=== PATIENT | male | born 1985 | race Two or more races ===

== ENCOUNTER 2023-03-14 11:46 | Inpatient (IN) | payer MEDICARE, OTHER ==
[~2023-03-14] VITALS: Ht 162.6 cm; Wt 111.7 kg
[2023-03-14 12:11] LABS: Basophils # (auto) 0.1 10 ^3/uL (0-0.2); Basophils % (auto) 1.3 % (0.0-2.0); Eosinophils # (auto) 0.2 10 ^3/uL (0-0.8); Eosinophils % (auto) 1.5 % (0.0-7.0); Hematocrit 47.8 % (41.0-53.0); Hemoglobin 15.9 g/dL (13.5-17.5); Lymphocytes # (auto) 3.2 10 ^3/uL (0.4-5.4); Lymphocytes % (auto) 30.6 % (10.0-50.0); Mean Corpuscular Hemoglobin 30.6 pg (28.0-32.0); Mean Corpuscular Hgb Conc. 33.3 g/dL (32.0-36.0); Mean Corpuscular Volume 91.9 fL (80.0-100.0); Monocytes # (auto) 0.7 10 ^3/uL (0-1.3); Monocytes % (auto) 6.6 % (0.0-12.0); Neutrophils # (auto) 6.4 10 ^3/uL (1.6-8.6); Nucleated Red Blood Cells % 0.1 %; Red Cell Distribution Width 14.5 % (11.8-14.3); White Blood Cell 10.6 10^3/uL (4.4-10.8)
[2023-03-14 12:36] LABS: Alanine Aminotransferase 34 U/L (7-40); Alkaline Phosphatase 61 U/L (46-116); Calcium 9.3 mg/dL (8.7-10.4); Chloride 110 mmol/L (98-107)
[2023-03-14 12:37] LABS: Albumin 4.5 g/dL (3.2-4.8); Anion Gap 8 (5-15); Aspartate Aminotransferase 19 U/L (13-40); BUN/Creatinine Ratio 14.1 (10.0-20.0); Bilirubin, Total 0.4 mg/dL (0.2-1.0); Blood Urea Nitrogen 9 mg/dL (9-23); Carbon Dioxide 23 mmol/L (20-30); Glucose 120 mg/dL (74-106); Sodium 141 mmol/L (136-145); Total Protein 6.4 g/dL (5.7-8.2)
[2023-03-14 12:42] LABS: INR 1.01 (0.9-1.15); Partial Thromboplastin Time 33.4 SEC (24.5-34.5); Prothrombin Time 10.6 sec (9.3-11.8)
[2023-03-14 14:21] LABS: Urine Epithelial Cast None Seen /hpf (<5)
[2023-03-14 14:37] LABS: Urine Bacteria NONE SEEN /hpf (None Seen); Urine Blood Negative /uL (Negative); Urine Clarity Clear (Clear); Urine Color Yellow (Yellow); Urine Hyaline Cast FEW /lpf (0 - 2); Urine Mucus FEW (None Seen); Urine Protein, UAD TRACE (Negative); Urine Specific Gravity 1.023 (1.001-1.035); Urine WBC <1 /hpf (0 - 3)
[2023-03-14] MEDS ORDERED: PANTOPRAZOLE 40 MG TAB PO ONE (15:45)
[2023-03-14] MEDS ORDERED: METOCLOPRAMIDE HCL 5MG/ml INJ 2ml VIAL IV ONE (15:45)
[2023-03-14] MEDS ORDERED: ONDANSETRON HCL 4 MG/2 ML VIAL IV PRN (17:00)
[2023-03-14] MEDS ORDERED: NITROGLYCERIN 0.4 MG SL TAB SL PRN (17:00)
[2023-03-14] MEDS ORDERED: ACETAMINOPHEN 325 MG TAB PO PRN (17:00)
[2023-03-14] MEDS ORDERED: MORPHINE SULFATE 4 MG/ML SYR/VIAL IV PRN (17:00)
[2023-03-14 18:11] LABS: Magnesium 2.1 mg/dL (1.6-2.6)
[2023-03-14] MEDS ORDERED: ENOXAPARIN SOD 100 MG/1 ML SYRINGE SC SCH (18:21)
[2023-03-14 18:30] LABS: INR 1.01 (0.9-1.15); Prothrombin Time 10.6 sec (9.3-11.8)
[2023-03-14 21:10] VITALS: PULSE 76; RESP 18; O2SAT 96
[2023-03-14] MEDS ORDERED: METOPROLOL TARTRATE 25 MG TAB PO SCH (22:00)
[2023-03-14] MEDS ORDERED: ATORVASTATIN 20 MG TAB PO SCH (22:00)
[2023-03-15 00:18] VITALS: BP_SYST 140; BP_SYST 150; BP_DIAS 105; BP_DIAS 96; PULSE 59; PULSE 75; RESP 16; TEMP 97.9; TEMP 98.3; O2SAT 96; O2SAT 98
[2023-03-15 05:00] VITALS: BP 122/88; PULSE 74; RESP 16; TEMP 98; O2SAT 95
[2023-03-15] MEDS ORDERED: OMEP20TA PO (05:16)
[2023-03-15] MEDS ORDERED: LOSA100T58 PO (05:16)
[2023-03-15] MEDS ORDERED: LEVO88TA4 PO (05:16)
[2023-03-15 05:49] LABS: Triglycerides 243 mg/dL (< 150)
[2023-03-15 05:50] LABS: Cholesterol 136 mg/dL (< 200); LDL Cholesterol 93 mg/dL (< 100)
[2023-03-15 05:51] LABS: HDL Cholesterol 20 mg/dL (40-59)
[2023-03-15] MEDS ORDERED: DOCUSATE SOD 100 MG CAP PO SCH (10:00)
[2023-03-15] MEDS ORDERED: ASPirin 81 mg TAB PO SCH (10:00)
== END 2023-03-15 06:15 | disposition left against medical advice (07) | DRG 311 ==
LOC: ER 11:46 → EDBD 11:46 → TELE 17:03 → TELE-WESTW 23:13
PROVIDERS: ADMIT Nurse Practitioner Family; ATTEND Nurse Practitioner Family
DX: I24.9 Acute ischemic heart disease, unspecified (principal); I50.42 Chronic combined systolic (congestive) and diastolic (congestive) heart failure; Z68.41 Body mass index [BMI] 40.0-44.9, adult; I11.0 Hypertensive heart disease with heart failure; E78.5 Hyperlipidemia, unspecified; Z53.29 Procedure and treatment not carried out because of patient's decision for other reasons; F17.200 Nicotine dependence, unspecified, uncomplicated; I25.10 Atherosclerotic heart disease of native coronary artery without angina pectoris; I25.2 Old myocardial infarction; Z98.61 Coronary angioplasty status; Z88.8 Allergy status to other drugs, medicaments and biological substances; E66.01 Morbid (severe) obesity due to excess calories
CPT/HCPCS: 36415; 71045; 80053; 80061; 81001; 83690; 83735; 83880; 84443; 84484; 85025; 85379; 85610; 85730; 93005; G0378